=== PATIENT | female | born 1990 ===

== ENCOUNTER 2017-09-20 10:41 | Emergency (ER) | payer SELFPAY ==
[2017-09-20 11:39] VITALS: BMI 24.0
--- NOTE | 2017-09-20 11:43 | ED PDOC ---
Arrival/HPI - General Time Seen by Provider: 09/20/17 11:30 Historian: Patient - History of Present Illness Narrative History of Present Illness (Text): 09/20/17 11:39 27 year old female, with no significant past medical history, presents to the emergency department complaining of chest pain and palpitations after cocaine and alcohol use. Patient notes the pain as a pressure that has since stopped. Patient notes several episodes of vomiting. Patient denies any fever, chills, diarrhea, back pain, neck pain, headache, dizziness, or any other complaints. Time/Duration: 1-3 hours Symptom Onset: Sudden Symptom Course: Unchanged Activities at Onset: Light Context: Home Past Medical History - Provider Review Nursing Documentation Reviewed: Yes Family/Social History - Physician Review Nursing Documentation Reviewed: Yes Family/Social History: Unknown Family HX Allergies/Home Meds Allergies/Adverse Reactions: Allergies No Known Allergies Allergy (Verified 09/20/17 11:38) Review of Systems - Physician Review All systems were reviewed & negative as marked: Yes - Review of Systems Constitutional: Normal Eyes: Normal ENT: Normal Respiratory: Normal. absent: SOB, Cough Cardiovascular: Chest Pain, Palpitations Gastrointestinal: Vomiting. absent: Abdominal Pain, Diarrhea, Nausea Genitourinary Female: Normal. absent: Dysuria, Frequency, Hematuria Musculoskeletal: Normal. absent: Back Pain, Neck Pain Skin: Normal. absent: Rash Neurological: Normal. absent: Headache, Dizziness Endocrine: Normal Hemo/Lymphatic: Normal Psychiatric: Normal Physical Exam - Physical Exam Narrative Physical Exam (Text): 09/20/17 11:43 Constitutional: No acute distress. Head: Normocephalic. Atraumatic. Eyes: PERRL. ENT: Moist mucous membranes. Neck: Supple. Cardiovascular: Regular rate. Chest: No tenderness. Respiratory: Clear to auscultation bilaterally. GI: Soft. Nontender. Nondistended. Back: No CVA tenderness. Musculoskeletal: No tenderness or swelling of extremities. Skin: No rash. Neurologic: Alert, no focal deficit. Medical Decision Making ED Course and Treatment: 09/20/17 11:44 Impression: 27 year old female presents to the emergency department complaining of Chest pain and palpitations after cocaine and alcohol use. Plan: -- Labs -- Troponin -- Chest X-ray -- Aspirin -- Reassess and disposition Progress Notes: EKG reviewed, shows NSR at [address]/T wave changes. 09/20/17 12:38 CXR IMPRESSION: No active pulmonary disease. First set of enzymes negative. Patient advised further observation for cardiac enzymes but she refused. - Lab Interpretations Lab Results: 09/20/17 12:00 09/20/17 12:00 Lab Results 09/20/17 12:00: Sodium 145, Potassium 3.8, Chloride 107, Carbon Dioxide 24, Anion Gap 19, BUN 10, Creatinine 0.7, Est GFR ( Amer) > 60, Est GFR (Non- Af Amer) > 60, Random Glucose 95, Calcium 9.1, Total Bilirubin 0.3, AST 25, ALT 15, Alkaline Phosphatase 62, Total Creatine Kinase 92, Troponin I < 0.01, Total Protein 7.5, Albumin 4.4, Globulin 3.1, Albumin/Globulin Ratio 1.4 09/20/17 12:00: WBC 9.7, RBC 4.45, Hgb 12.8, Hct 38.0, MCV 85.4, MCH 28.8, MCHC 33.7, RDW 13.7, Plt Count 203, MPV 10.6, Gran % 76.7 H, Lymph % (Auto) 15.8 L, [place] % (Auto) 6.8 H, Eos % (Auto) 0.5 L, Baso % (Auto) 0.2, Gran # 7.45 H, Lymph # (Auto) 1.5, [place] # (Auto) 0.7 H, Eos # (Auto) 0.1, Baso # (Auto) 0.02 - RAD Interpretation Radiology Orders: 09/20/17 11:39 CHEST PORTABLE [RAD] Stat - Medication Orders Current Medication Orders: Aspirin (Aspirin) 325 mg PO STAT STA Stop: 09/20/17 11:41 Last Admin: 09/20/17 12:07 Dose: 325 mg - Scribe Statement The provider has reviewed the documentation as recorded by the Scribelizabeth Sherman All medical record entries made by the Scribelizabeth were at my direction and personally dictated by me. I have reviewed the chart and agree that the record accurately reflects my personal performance of the history, physical exam, medical decision making, and the department course for this patient. I have also personally directed, reviewed, and agree with the discharge instructions and disposition. Disposition/Present on Arrival - Present on Arrival Any Indicators Present on Arrival: No - Disposition Have Diagnosis and Disposition been Completed?: Yes Diagnosis: Chest pain Disposition: AGAINST MEDICAL ADVICE Disposition Time: 12:41 Patient Plan: Discharge Condition: UNKNOWN Discharge Instructions (ExitCare): Chest Pain (ED), Cocaine, Leaving Against Medical Advice Against Medical Advice - AMA Patient Left Against Medical Advice: The patient declines admission to the hospital and wishes to leave the Emergency Department. This action is against my medical advice. This decision was made with informed refusal. The patient was told that admission to the hospital is necessary. Explanation of the reasons why were discussed. The risks of leaving were explained to the patient and include, but are not limited to, worsening of known or currently unknown conditions, permanent disability and from undiagnosed or untreated conditions. The patient has the capacity to make this informed decision and understands my explanation of the current medical problem and risks of leaving. The patient voluntarily accepts these risks and signed an AMA form documenting our conversation. The patient was given the opportunity to ask questions and reconsider. The patient was encouraged to return to the Emergency Department at any time for further care.
[2017-09-20 12:11] LABS: BASO # 0.02 K/mm3 (0.0-2.0); BASO % 0.2 % (0.0-3.0); EOS # 0.1 (0.0-0.7); EOS % 0.5 % (1.5-5.0); GRAN # 7.45 (1.4-6.5); GRAN % 76.7 % (50.0-68.0); HEMOGLOBIN 12.8 g/dL (12.0-16.0); LYMPH # 1.5 (1.2-3.4); LYMPH % 15.8 % (22.0-35.0); MEAN CELL VOLUME 85.4 fl (80.0-105.0); MEAN CORPUSCULAR HEMOGLOBIN 28.8 pg (25.0-35.0); MEAN CORPUSCULAR HGB CONC 33.7 g/dl (31.0-37.0); MEAN PLATELET VOLUME 10.6 fl (7.0-11.0); MONO # 0.7 (0.1-0.6); MONO % 6.8 % (1.0-6.0); RBC 4.45 10^6/uL (3.5-6.1); RED CELL DISTRIBUTION WIDTH 13.7 % (11.5-14.5); WHITE BLOOD COUNT 9.7 10^3/ul (4.5-11.0)
[2017-09-20 12:25] LABS: ALB/GLOB RATIO 1.4 (1.1-1.8); ALBUMIN 4.4 g/dL (3.0-4.8); ALT/SGPT 15 U/L (7-56); AST/SGOT 25 U/L (14-36); BLOOD UREA NITROGEN 10 mg/dL (7-21); CALCIUM 9.1 mg/dL (8.4-10.5); GFR AFRICAN-AMERICAN > 60; GFR NON-AFRICAN AMERICAN > 60
--- NOTE | 2017-09-20 12:28 | RAD ---
HISTORY: chest pain, palpitations, cocaine use COMPARISON: No prior. FINDINGS: LUNGS: The lungs are well inflated and clear. PLEURA: No significant pleural effusion identified, no pneumothorax apparent. CARDIOVASCULAR: Normal. OSSEOUS STRUCTURES: No significant abnormalities. VISUALIZED UPPER ABDOMEN: Normal. OTHER FINDINGS: None. IMPRESSION: No active pulmonary disease.
[2017-09-20 12:36] LABS: TROPONIN I < 0.01 ng/mL
[2017-09-20 13:26] VITALS: BP 115/82; PULSE 82; RESP 18; TEMP 98.4
[2017-09-20 13:28] VITALS: O2SAT 98
--- NOTE | 2017-09-21 08:45 | CARD ---
APPROVED REPORT EKG Measurement Heart [id number] <Conclusion> Normal sinus rhythm Normal ECG
== END 2017-09-20 12:45 | disposition left against medical advice (07) ==
LOC: ED 10:41
DX: R07.9 Chest pain, unspecified (principal)